=== PATIENT | male | born 1940 | race Caucasian/White ===

== ENCOUNTER → 2018-07-10 | Outpatient (CLI) | payer MEDICARE ==
--- NOTE | 2018-07-10 17:49 | KCIC ---
3 view bilateral hand radiographs 07/10/2018 CLINICAL HISTORY: Bilateral hand pain and stiffness since 2016. PA, oblique and lateral digital radiographs of both hands were obtained. There is diffuse osteopenia of the visualized bony structures. Moderate to severe degenerative changes are seen throughout the interphalangeal and the MCP joints of both hands consisting of varying degrees of disc space narrowing, subchondral sclerosis and minimal to mild osteophyte formation. Subluxations of the MCP joints of both hands are seen. No significant erosive changes are noted. Moderate to severe degenerative changes are seen involving carpal metacarpal joints, mid carpal and radiocarpal joints of both wrists. No fracture or dislocation is seen. IMPRESSION: Degenerative changes are seen throughout both hands and wrists as outlined above. No acute osseous abnormality is seen. Electronically signed by: Andi Fernando MD (07/10/2018 5:45 PM) [facility]
== END | disposition home or self-care (01) ==
LOC: KCIC 12:59
PROVIDERS: ATTEND Internal Medicine Rheumatology
DX: S63.092A Other subluxation of left wrist and hand, initial encounter (principal); S63.091A Other subluxation of right wrist and hand, initial encounter; M19.042 Primary osteoarthritis, left hand; M19.041 Primary osteoarthritis, right hand; M85.842 Other specified disorders of bone density and structure, left hand; M85.841 Other specified disorders of bone density and structure, right hand; X58.XXXA Exposure to other specified factors, initial encounter; Y93.89 Activity, other specified; Y92.89 Other specified places as the place of occurrence of the external cause; Y99.8 Other external cause status
CPT/HCPCS: 73130

== ENCOUNTER → 2018-07-29 | Outpatient (CLI) | payer MEDICARE ==
--- NOTE | 2018-07-29 17:56 | KCIC ---
CT scan of the petrous portions of the temporal bones 07/27/2018 CLINICAL HISTORY: Bilateral hearing loss, left greater than right. TECHNIQUE: Unenhanced contiguous, 0.6 mm axial sections were obtained through the petrous portions of the temporal bones. 1 mm reconstructed sagittal, axial and coronal images were obtained One or more of the following individualized dose reduction techniques were utilized for this study: 1. Automated exposure control. 2. Adjustment of the mA and/or kV according to patient size. 3. Use of iterative reconstruction technique. FINDINGS: The right tympanic membrane is thickened and slightly retracted. Increased soft tissue density is seen within the lateral epitympanum immediately adjacent to the middle ear ossicles which measures 7 mm in greatest diameter. Although this could represent inflammation a cholesteatoma is not excluded. No bony obstruction of the right middle ear ossicles is seen. The cochlea and semicircular canals and the bony structures of the internal auditory canal are within normal limits. Near complete opacification of the right mastoid air cells with fluid and/or inflammation is seen. The left tympanic membrane is thickened and slightly retracted. Increased soft tissue density is seen within the medial aspect of the epitympanum which is felt to most likely reflect inflammation. The left middle ear ossicles are intact. The cochlea and semicircular canals are within normal limits. The bony structures of the left internal auditory canal are within normal limits.. Complete opacification of the left mastoid air cells due to fluid and/or inflammation is seen. IMPRESSION: 1. Soft tissue density is seen within the right epitympanum which could represent inflammation although a cholesteatoma could have a similar appearance and is not excluded. No bony destruction of the middle air ossicles is seen. 2. Inflammation is seen within the left epitympanum as outlined above. 3. Bilateral mastoid disease, left greater than right. Electronically signed by: Andi Fernando MD (07/29/2018 5:53 PM) [id number]
== END | disposition home or self-care (01) ==
LOC: KCIC CT 14:08
PROVIDERS: ATTEND Otolaryngology
DX: H71.93 Unspecified cholesteatoma, bilateral (principal)
CPT/HCPCS: 70480